=== PATIENT | male | born 1965 | race Asian ===

== ENCOUNTER 2025-03-13 21:17 | Emergency (ER) | payer MEDICAID, SELFPAY ==
[2025-03-13 21:20] VITALS: BP 113/73
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
[2025-03-14 02:00] VITALS: BP 137/81
== END 2025-03-14 02:58 | disposition short-term general hospital (02) ==
LOC: EMR 21:17
PROVIDERS: EMERGENCY PHYSICIAN Student in an Organized Health Care Education/Training Program
DX: T54.3X1A Toxic effect of corrosive alkalis and alkali-like substances, accidental (unintentional), initial encounter (principal); T24.432A Corrosion of unspecified degree of left lower leg, initial encounter; T22.45 Corrosion of unspecified degree of shoulder; Y93.E9 Activity, other interior property and clothing maintenance; Y92.000 Kitchen of unspecified non-institutional (private) residence as the place of occurrence of the external cause; Z86.718 Personal history of other venous thrombosis and embolism
CPT/HCPCS: 99285